=== PATIENT | male | born 1930 | race Caucasian/White ===

== ENCOUNTER 2020-07-10 23:28 | Inpatient (IN) | payer MEDICARE, OTHER ==
[~2020-07-10] VITALS: Ht 167.6 cm; Wt 55.0 kg
[2020-07-10] MEDS ORDERED: ONDANSETRON 4 MG/2 ML (SDV) Z0FRAN ONE (23:39)
[2020-07-10] MEDS ORDERED: LACTATED RINGERS 1,000 ML IV ONE (23:39)
[2020-07-10] MEDS ORDERED: fentaNYL INJECTION 100 MCG/2 ML AMP ONE ×2 (23:39→23:50)
[2020-07-10 23:48] LABS: BASOPHILS # (AUTO) 0.1 10^3/uL (0.0-0.1); BASOPHILS % (AUTO) 0 % (0-10); EOSINOPHILS # (AUTO) 0.1 10^3/uL (0.0-0.3); EOSINOPHILS % (AUTO) 1 % (0-10); HEMATOCRIT 33 % (40-54); HEMOGLOBIN 10.6 g/dL (13.3-17.7); LYMPHOCYTES # (AUTO) 3.7 10^3/uL (1.0-4.0); LYMPHOCYTES % (AUTO) 23 % (12-44); MEAN CORPUSCULAR HEMOGLOBIN 31 pg (25-34); MEAN CORPUSCULAR HGB CONC 32 g/dL (32-36); MEAN CORPUSCULAR VOLUME 95 fL (80-99); MONOCYTES # (AUTO) 1.1 10^3/uL (0.0-1.0); MONOCYTES % (AUTO) 7 % (0-12); NEUTROPHILS # (AUTO) 11.1 10^3/uL (1.8-7.8); NEUTROPHILS % (AUTO) 69 % (42-75); PLATELET COUNT 156 10^3/uL (130-400); WHITE BLOOD COUNT 16.2 10^3/uL (4.3-11.0)
[2020-07-10] MEDS ORDERED: LORazepam INJ 2 MG/ML (ATIVAN) VIAL ONE (23:50)
[2020-07-10] MEDS ORDERED: morphine INJ 10 MG/ML 1ML (SYR OR VIAL) ONE (23:55)
[2020-07-11] MEDS ORDERED: LACTATED RINGERS 1,000 ML IV ONE (00:01)
[2020-07-11 00:19] LABS: BILIRUBIN,TOTAL 0.9 MG/DL (0.1-1.0); CALCIUM 8.2 MG/DL (8.5-10.1); CREATININE SERUM 1.71 MG/DL (0.60-1.30); POTASSIUM 3.6 MMOL/L (3.6-5.0); TOTAL PROTEIN 4.9 GM/DL (6.4-8.2)
[2020-07-11] MEDS ORDERED: morphine INJ 10 MG/ML 1ML (SYR OR VIAL) ONE (00:20)
[2020-07-11] MEDS ORDERED: morphine INJ 10 MG/ML 1ML (SYR OR VIAL) IVP STA (00:24)
[2020-07-11] MEDS ORDERED: LORazepam INJ 2 MG/ML (ATIVAN) VIAL ONE (00:26)
[2020-07-11] MEDS ORDERED: LORazepam INJ 2 MG/ML (ATIVAN) VIAL IVP ONE (00:30)
[2020-07-11 00:35] LABS: INR 1.1 (0.8-1.4); PARTIAL THROMBOPLASTIN TIME 26 SEC (24-35); PROTHROMBIN TIME PATIENT 14.8 SEC (12.2-14.7)
--- NOTE | 2020-07-11 00:40 | ED Abdominal Pain ---
General Stated Complaint: CONFUSSION Source of Information: Patient, EMS, Family Exam Limitations: No Limitations History of Present Illness Date Seen by Provider: Jul 10, 2020 Time Seen by Provider: 23:34 Initial Comments 89-year-old gentleman presents to the emergency room via [facility] from [place], [place] with primary complaint of altered mental status. They reported last known well time around 22:00. There was reportedly slurred speech and a significant decline in mental status at this time. EMS reported he was initially minimally responsive for them. Blood sugar was 244. They reported history of TIAs and coronary artery disease. Based on initial complaint stroke activation was paged. However, patient was alert and oriented to person and age. He complained of significant right lower quadrant pain. His reported that his symptoms actually started tonight with nausea and right lower quadrant pain. He then seemed to become confused and started slurring his speech. He was noted to have a declining blood pressure and became hypotensive during the assessment. He was treated with fentanyl for pain and then an appropriate abdominal exam could be performed. He was noted to have a pulsatile abdominal mass which prompted a shift and work up away from stroke and toward evaluation for ruptured abdominal aortic aneurysm. EMS reports a blood sugar of 244. Twelve-lead EKG by EMS showed paced rhythm. Allergies and Home Medications Allergies Coded Allergies: No Known Drug Allergies (Unverified , 07/11/20) Patient Home Medication List Home Medication List Reviewed: Yes Review of Systems Review of Systems Constitutional: no symptoms reported EENTM: No Symptoms Reported Respiratory: No Symptoms Reported Cardiovascular: See HPI Gastrointestinal: See HPI Genitourinary: No Symptoms Reported Musculoskeletal: no symptoms reported Skin: no symptoms reported Psychiatric/Neurological: See HPI Endocrine: No Symptoms Reported Hematologic/Lymphatic: No Symptoms Reported Past Pznobgv-Tiwish-Yqhhhm Hx Past Med/Social Hx: Reviewed Nursing Past Med/Soc Hx Past Medical History Surgeries: Yes Coronary Stent, Pacemaker, Valve Replacement Respiratory: No Cardiac: Yes Coronary Artery Disease, Hypertension, Valvular Heart Disease Neurological: No Genitourinary: No Gastrointestinal: Yes Abdominal Hernia Musculoskeletal: No Endocrine: No HEENT: No Cancer: No Psychosocial: No Integumentary: No Physical Exam Vital Signs Vital Signs - First Documented 07/10/20 23:29 Temp 35.2 Pulse 79 Resp 20 B/P (MAP) 90/56 (67) Pulse Ox 100 O2 Delivery Room Air Capillary Refill : Height/Weight/BMI Height: '" Weight: lbs. oz. kg; BMI Method: General Appearance: WD/WN, moderate distress HEENT: PERRL/EOMI, normal ENT inspection Neck: normal inspection Respiratory: lungs clear, normal breath sounds, no respiratory distress Cardiovascular: regular rate, rhythm, no edema, no murmur Gastrointestinal: soft, other (Pulsatile mass, right lower quadrant tenderness) Extremities: other (Lower extremities cool and pale with barely palpable pedal pulses) Neurologic/Psychiatric: dance historian II-XII nml as tested, no motor/sensory deficits, alert, other (Agitated, disoriented to month and place) Skin: cool, pallor Progress/Results/Core Measures Results/Orders Lab Results Laboratory Tests Test 07/10/20 23:30 Range/Units White Blood Count 16.2 H 4.3-11.0 10^3/uL Red Blood Count 3.46 L 4.30-5.52 10^6/uL Hemoglobin 10.6 L 13.3-17.7 g/dL Hematocrit 33 L 40-54 % Mean Corpuscular Volume 95 80-99 fL Mean Corpuscular Hemoglobin 31 25-34 pg Mean Corpuscular Hemoglobin Concent 32 32-36 g/dL Red Cell Distribution Width 13.2 10.0-14.5 % Platelet Count 156 130-400 10^3/uL Mean Platelet Volume 10.0 9.0-12.2 fL Immature Granulocyte % (Auto) 1 % Neutrophils (%) (Auto) 69 42-75 % Lymphocytes (%) (Auto) 23 12-44 % Monocytes (%) (Auto) 7 0-12 % Eosinophils (%) (Auto) 1 0-10 % Basophils (%) (Auto) 0 0-10 % Neutrophils # (Auto) 11.1 H 1.8-7.8 10^3/uL Lymphocytes # (Auto) 3.7 1.0-4.0 10^3/uL Monocytes # (Auto) 1.1 H 0.0-1.0 10^3/uL Eosinophils # (Auto) 0.1 0.0-0.3 10^3/uL Basophils # (Auto) 0.1 0.0-0.1 10^3/uL Immature Granulocyte # (Auto) 0.1 0.0-0.1 10^3/uL Neutrophils % (Manual) 65 % Lymphocytes % (Manual) 28 % Monocytes % (Manual) 6 % Eosinophils % (Manual) 1 % Blood Morphology Comment NORMAL Prothrombin Time 14.8 H 12.2-14.7 SEC INR Comment 1.1 0.8-1.4 Activated Partial Thromboplast Time 26 24-35 SEC D-Dimer >= 20.00 *H 0.00-0.49 UG/ML Sodium Level 141 135-145 MMOL/L Potassium Level 3.6 3.6-5.0 MMOL/L Chloride Level 107 98-107 MMOL/L Carbon Dioxide Level 20 L 21-32 MMOL/L Anion Gap 14 5-14 MMOL/L Blood Urea Nitrogen 28 H 7-18 MG/DL Creatinine 1.71 H 0.60-1.30 MG/DL Estimat Glomerular Filtration Rate 38 BUN/Creatinine Ratio 16 Glucose Level 272 H 70-105 MG/DL Calcium Level 8.2 L 8.5-10.1 MG/DL Corrected Calcium 9.0 8.5-10.1 MG/DL Total Bilirubin 0.9 0.1-1.0 MG/DL Aspartate Amino Transf (AST/SGOT) 17 5-34 U/L Alanine Aminotransferase (ALT/SGPT) 10 0-55 U/L Alkaline Phosphatase 46 40-136 U/L Troponin I 0.094 H <0.028 NG/ML Total Protein 4.9 L 6.4-8.2 GM/DL Albumin 3.0 L 3.2-4.5 GM/DL My Orders Orders - CHANEL WILKS MD Cbc With Automated Diff (07/10/20 23:38) Protime With Inr (07/10/20 23:38) Partial Thromboplastin Time (07/10/20 23:38) Comprehensive Metabolic Panel (07/10/20 23:38) Fibrin Degradation Products (07/10/20 23:38) Troponin I (07/10/20 23:38) Ua Culture If Indicated (07/10/20 23:38) Ekg Tracing (07/10/20 23:38) Nothing By Mouth (07/11/20 Breakfast) Accucheck Stat ONCE (07/10/20 23:38) Ed Iv/Invasive Line Start (07/10/20 23:38) Ed Iv/Invasive Line Start (07/10/20 23:38) Vital Signs Stroke Patient Q15M (07/10/20 23:38) O2 (07/10/20 23:38) Intake & Output 06,14,22 (07/10/20 23:38) Monitor-Rhythm Ecg Trace Only (07/10/20 23:38) Dysphagia Screening Tool (07/10/20 23:38) Post Thrombolytic Adminstratio (07/10/20 23:38) Lipid Panel (07/11/20 06:00) Fentanyl Injection (Sublimaze Injection (07/10/20 23:39) Lactated Ringers (Lr 1000 Ml Iv Solution (07/10/20 23:39) Ondansetron Injection (Zofran Injectio (07/10/20 23:39) Manual Differential (07/10/20 23:30) Lorazepam Injection (Ativan Injection) (07/10/20 23:50) Fentanyl Injection (Sublimaze Injection (07/10/20 23:50) Morphine Injection (Morphine Injection (07/10/20 23:55) Ct Abdomen/Pelvis Wo (07/11/20 00:03) Lactated Ringers (Lr 1000 Ml Iv Solution (07/11/20 00:01) Morphine Injection (Morphine Injection (07/11/20 00:24) Morphine Injection (Morphine Injection (07/11/20 00:20) Lorazepam Injection (Ativan Injection) (07/11/20 00:30) Lorazepam Injection (Ativan Injection) (07/11/20 00:26) Medications Given in ED Current Medications Medications Dose Ordered Sig/Raji Route Start Time Stop Time Status Last Admin Dose Admin Fentanyl Citrate 100 mcg STK-MED ONCE .ROUTE 07/10/20 23:39 07/10/20 23:44 DC 07/10/20 23:51 50 MCG Fentanyl Citrate 100 mcg STK-MED ONCE .ROUTE 07/10/20 23:50 07/10/20 23:56 DC 07/11/20 00:01 50 MCG Lactated Ringer's 1,000 ml @ ud STK-MED ONCE IV 07/10/20 23:39 07/10/20 23:45 DC 07/10/20 23:50 1,000 MLS/HR Lactated Ringer's 1,000 ml @ ud STK-MED ONCE IV 07/11/20 00:01 07/11/20 00:06 DC 07/11/20 00:20 1,000 MLS/HR Lorazepam 2 mg STK-MED ONCE .ROUTE 07/10/20 23:50 07/10/20 23:55 DC 07/11/20 00:01 0.5 MG Lorazepam 2 mg STK-MED ONCE .ROUTE 07/11/20 00:26 07/11/20 00:31 DC 07/11/20 00:36 1 MG Ondansetron HCl 4 mg STK-MED ONCE .ROUTE 07/10/20 23:39 07/10/20 23:45 DC 07/10/20 23:51 4 MG Vital Signs/I&O 07/10/20 07/10/20 23:29 23:29 Temp 35.2 Pulse 79 Resp 20 B/P (MAP) 90/56 (67) Pulse Ox 100 100 O2 Delivery Room Air Progress Progress Note : Progress Note Patient was given fentanyl, Zofran, and Ativan for symptom control. Once he was able to remain still he was sent to CT scan for suspected ruptured abdominal aortic aneurysm. EMS was placed on standby for emergent transfer. CT confirmed ruptured abdominal aortic aneurysm. IV fluids were initiated as patient was hypotensive. I initially discussed CODE STATUS with his and children and they requested full code. They also requested transfer to a vascular surgery capable facility if possible. I contacted [facility] and they were on diversion for transfers. I then contacted [facility] and spoke with Dr. Price, cardiovascular surgeon. He advised against transfer as he believed patient was a very poor surgical candidate and had a very poor prognosis. He did accept transfer for an assessment if family strongly desired it. I discussed the prognosis with family and they made the decision to pursue comfort care. Patient was given further opioid analgesics and Ativan for symptom control. Diagnostic Imaging Diagonstic Imaging: CT Comments CT viewed by me and stat rad report given verbally. 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 Departure Communication (Admissions) Time/Spoke to Admitting Phy: 00:30 Dr. Sloan Impression Primary Impression: Ruptured abdominal aortic aneurysm Additional Impression: Need for comfort care Disposition: ADMITTED INPATIENT Condition: Critical Admissions Decision to Admit Reason: Admit from ER (General) Decision to Admit/Date: Jul 11, 2020 Time/Decision to Admit Time: 00:01 Departure-Patient Inst. Referrals: Meeta CHAWLA DO (PCP/Family) Primary Care Physician CHANEL WILKS MD Jul 11, 2020 00:40
[2020-07-11 00:52] LABS: FIBRIN DEGRADATION PRODUCTS >= 20.00 UG/ML (0.00-0.49)
[2020-07-11 01:10] VITALS: BP 85/50
[2020-07-11 01:11] LABS: EOSINOPHILS % (MANUAL) 1 %; LYMPHOCYTES % (MANUAL) 28 %; MONOCYTES % (MANUAL) 6 %; NEUTROPHILS % (MANUAL) 65 %; RBC MORPH NORMAL
[2020-07-11] MEDS ORDERED: ACETAMINOPHEN 650 MG SUPP (TYLENOL) PR PRN (02:00)
[2020-07-11] MEDS ORDERED: BISACODYL 10 MG SUPP (DULCOLAX) PR PRN (02:00)
[2020-07-11] MEDS ORDERED: SALIVA STIMULANT MOUTH SPRAY (BIOTENE) 1.5 OZ MM PRN (02:00)
[2020-07-11] MEDS ORDERED: GLYCOPYRROLATE 0.2 MG/ML (ROBINUL) 2 ML VIAL IV PRN (02:00)
[2020-07-11] MEDS ORDERED: LORazepam ORAL CONCENTRATE 2 MG/ML 30 ML (ATIVAN) PO PRN (02:00)
[2020-07-11] MEDS ORDERED: ATROPINE 1% OPHTHALMIC SOLN 5 ML SL PRN (02:00)
[2020-07-11] MEDS ORDERED: ARTIFICAL TEARS 0.4 ML UNIT DOSE (REFRESH PLUS) OU PRN (02:00)
[2020-07-11] MEDS ORDERED: LORazepam INJ 2 MG/ML (ATIVAN) VIAL IVP PRN (02:00)
[2020-07-11] MEDS ORDERED: morphine INJ 4 MG/ML 1 ML (VIAL/SYRINGE) IV PRN (02:00)
[2020-07-11] MEDS ORDERED: SCOPOLAMINE 1.5 MG (TRANSDERM-SCOP) PATCH TOP SCH (02:00)
[2020-07-11] MEDS ORDERED: ONDANSETRON 4 MG/2 ML (SDV) Z0FRAN IVP PRN (02:00)
[2020-07-11] MEDS ORDERED: PROMETHAZINE INJ 25 MG/ML (PHENERGAN) AMP IVP PRN (02:00)
[2020-07-11] MEDS ORDERED: CATHETER FLUSH 10 ML SYR IV PRN (06:30)
--- NOTE | 2020-07-11 06:32 | Diagnostic Imaging Report ---
EXAMINATION: CT Abdomen Pelvis without contrast. TECHNIQUE: Multiple contiguous axial images were obtained through the abdomen and pelvis without the use of intravenous contrast. All CT scans use one or more of the following dose optimizing techniques: automated exposure control, MA and/or KvP adjustment based on a patient size and exam type, or iterative reconstruction. HISTORY: Abd pain COMPARISON: None available. FINDINGS: Lung bases: The lung bases are clear. Solid organs: The liver is normal. Multiple layering hyperdense stones within the gallbladder. There is no biliary ductal dilation. Pancreas is normal. Spleen is normal. Adrenal glands are normal. Multiple bilateral nonobstructing renal calculi measuring up to 0.5 cm. No hydronephrosis. Bowel: There is a small hiatal hernia. No bowel obstruction. The appendix is nonvisualized. Peritoneum: There is a large amount of hyperdense fluid within the mid abdomen and retroperitoneum surrounding the aorta. Hyperdense fluid extends into the pelvis. This causes significant mass effect on the solid organs and bowel. No suspicious lymphadenopathy. Vasculature: There is a 6.5 x 6.1 cm aneurysm of the infrarenal abdominal aorta. 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 Evaluation is limited without IV contrast. Musculoskeletal: Degenerative changes of the spine without suspicious osseous lesion or compression fracture. Pelvis: The prostate gland is enlarged. Mild bladder wall thickening. IMPRESSION: 1. A 6.5 cm infrarenal abdominal aortic aneurysm with surrounding hemorrhage concerning for aneurysm rupture. 2. Bladder wall thickening. Recommend correlation with urinalysis. 3. Agree with preliminary interpretation. These findings were communicated to the ordering physician by the preliminary radiologist 12:18 AM on 07/11/2020. Dictated by: Dictated on workstation # [id number]
--- NOTE | 2020-07-11 08:15 | Short Stay Summary-Hospitalist ---
History of Present Illness HPI/Chief Complaint See below Date Seen 07/11/20 Time Seen by a Provider: 19:38 (Not actually seen this is for documentation purposes only) Attending Physician Azeem Sloan MD PCP Meeta Keita DO Referring Physician Date of Admission Jul 11, 2020 at 00:39 Home Medications & Allergies Home Medications Reviewed patient Home Medication Reconciliation performed by pharmacy medication reconciliations optical laboratory technician and/or nursing. Patients Allergies have been reviewed. Allergies Allergies Coded Allergies No Known Drug Allergies (Unverified07/11/20) Past Vbohlmt-Bqogpv-Quedad Hx Past Med/Social Hx: Reviewed Nursing Past Med/Soc Hx Patient Social History Alcohol Use: Denies Use Recreational Drug Use: No Recent Foreign Travel: No Contact w/other who traveled: No Recent Hopitalizations: No Recent Infectious Disease Expo: No (SPOUSE DENIES) Immunizations Up To Date Date of Pneumonia Vaccine: Mar 09, 2020 Date of Influenza Vaccine: Mar 09, 2020 Seasonal Allergies Seasonal Allergies: No Past Medical History Surgeries: Coronary Stent, Pacemaker, Valve Replacement Cardiac: Coronary Artery Disease, Hypertension, Valvular Heart Disease Gastrointestinal: Abdominal Hernia Musculoskeletal: Arthritis Review of Systems Constitutional: see HPI Physical Exam Physical Exam Vital Signs Vital Signs - First Documented 07/10/20 07/11/20 23:29 01:10 Temp 35.2 Pulse 79 Resp 20 B/P (MAP) 90/56 (67) Pulse Ox 100 O2 Delivery Room Air O2 Flow Rate 15.00 Capillary Refill : Greater Than 3 Seconds Height, Weight, BMI Height: '" Weight: lbs. oz. kg; 19.58 BMI Method: General Appearance: Other (this is for documentation purposes only, patient before being seen) Results Results/Procedures Labs Patient resulted labs reviewed. Short Stay Diagnosis Discharge Diagnosis-Short Stay Admission Diagnosis Ruptured AAA Final Discharge Diagnosis Ruptured AAA Conclusion Plan Ruptured AAA patient admitted for comfort care due to ruptured AAA Admitted to comfort care and prior to being seen This is for documentation purposes only Diagnosis/Problems Diagnosis/Problems (1) Need for comfort care Status: Acute (2) Ruptured abdominal aortic aneurysm Status: Acute DIANA ANN MD Jul 11, 2020 08:15
[2020-07-14] MEDS ORDERED: SCOPOLAMINE PATCH REMOVAL TP SCH (01:59)
== END 2020-07-11 06:10 | disposition expired | DRG 301 ==
LOC: ER 23:34 → 4TH 07-11 00:39
PROVIDERS: ADMIT Internal Medicine; ATTEND Internal Medicine
DX: I71.3 Abdominal aortic aneurysm, ruptured (principal); I25.10 Atherosclerotic heart disease of native coronary artery without angina pectoris; Z66 Do not resuscitate; Z51.5 Encounter for palliative care; I10 Essential (primary) hypertension; Z86.73 Personal history of transient ischemic attack (TIA), and cerebral infarction without residual deficits; Z95.0 Presence of cardiac pacemaker; Z95.5 Presence of coronary angioplasty implant and graft
CPT/HCPCS: 36415; 74176; 80053; 84484; 85007; 85027; 85379; 85610; 85730; 93005; 93041